=== PATIENT | male | born 1995 | race African-American/Black ===

== ENCOUNTER 2025-02-21 20:09 | Emergency (ER) | payer SELFPAY ==
[2025-02-21 20:13] VITALS: BP 123/83; PULSE 94; RESP 18; TEMP 37; O2SAT 96
--- NOTE | 2025-02-21 20:15 | DI.RAD_ITS ---
Exam(s) XR CHEST 2V PA LATERAL EXAM: XR CHEST 2V PA LATERAL CLINICAL HISTORY: cough. TECHNIQUE: 2D digital imaging was performed. COMPARISON: No exams were available for comparison FINDINGS: 2 views: Heart size is normal. The mediastinum is not widened. Lungs are clear. No infiltrates nor pleural effusions. IMPRESSION: No acute pulmonary findings. DATA REPOSITORY: RADIATION DOSE DELIVERED:
[2025-02-21 20:18] VITALS: BP 123/83; PULSE 94; RESP 18; TEMP 37; O2SAT 96
--- NOTE | 2025-02-21 20:27 | ED.GENADUL_ITS ---
Discharge Plan Disposition Patient Disposition: Home Condition: Stable Discharge Details Clinical Impression: Respiratory infection Primary Care Provider: Khalida,Local ED Provider: Palomo Alcala Home Meds and New Rx's Prescriptions: New prednisone 20 mg tablet 60 mg PO DAILY 4 Days Qty: 12 0RF doxycycline hyclate 100 mg tablet 100 mg PO BID Qty: 14 0RF Discharge Instructions Additional Instructions: You can use the inhaler 2 puffs every 4 hours as needed. If you are not improving within 1 week follow-up with either your primary care provider or express care. If you feel significantly more ill or short of breath return to the emergency department for evaluation HPI General Mode of arrival: ambulatory . Date/Time Provider Initiated Documentation: 02/21/25 20:15 . Limitations to Documentation: no limitations . Information obtained by: patient . History of Present Illness 29 year old M presents to the emergency department with the chief complaint of cough, body aches, dyspnea, described as moderate, Patient started experiencing this day(s) (1) and it has been constant. No relieving factors improve sympto m(s), No exacerbating factors reported . Patient notes no other symptoms.; denies fever/chills. Patient did receive the following treatments prior to arrival, none Related Data Home Medications ?Medication ?Instructions ?Recorded ?Confirmed doxycycline hyclate 100 mg tablet 100 mg PO BID #14 tabs 02/21/25 prednisone 20 mg tablet 60 mg (3 x 20 mg) PO DAILY 4 days 02/21/25 #12 tabs Previous Rx's ?Medication ?Instructions ?Recorded doxycycline hyclate 100 mg tablet 100 mg PO BID #14 tabs 02/21/25 prednisone 20 mg tablet 60 mg (3 x 20 mg) PO DAILY 4 days 02/21/25 #12 tabs Allergies Allergy/AdvReac Type Severity Reaction Status Date / Time No Known Allergies Allergy Verified 02/21/25 20:17 General Stated Complaint: RespSymp MERCEDES: 4 Review of Systems All systems reviewed & are unremarkable except as noted in HPI and below Constitutional Constitutional: Denies chills, Denies fever(s) and Denies weakness Cardiovascular Cardiovascular: Denies chest pain and Reports dyspnea Respiratory Respiratory: Reports cough and Reports dyspnea Gastrointestinal Gastrointestinal: Denies abdominal pain, Denies nausea and Denies vomiting Neurologic Neurologic: Denies weakness Exam Const General: no acute distress Orientation: alert HENMT Head: normal to inspection Ears: external ears normal General nose exam: external nose normal Mouth: moist mucous membranes Eyes General: appearance normal, both eyes and all related structures Neck Neck: normal visual inspection Resp Effort & Inspection: normal respiratory effort and able to speak in complete sentences Auscultation: rhonchi and wheezes Cardio Jugular venous pressure: no JVD Rate: regular rate Heart Sounds: no murmurs Skin General skin exam: no rashes or lesions noted Neuro General: patient alert and patient oriented x3 Extrem General: normal to inspection Psych Mental Status: mental status grossly normal Course Vital Signs Vital signs: Vital Signs Temperature 37.0 C 02/21/25 20:13 Pulse 94 H 02/21/25 20:13 Respiratory Rate 18 02/21/25 20:13 Blood Pressure 123/83 02/21/25 20:13 Pulse Oximetry 96 02/21/25 20:13 Temperature 37.0 C 02/21/25 20:18 Pulse 94 H 02/21/25 20:18 Respiratory Rate 18 02/21/25 20:18 Respiratory Effort Normal, Non-Labored 02/21/25 20:18 Respiratory Depth Normal 02/21/25 20:18 Blood Pressure 123/83 02/21/25 20:18 Blood Pressure Position Sitting 02/21/25 20:18 Pulse Oximetry 96 02/21/25 20:18 Oxygen Delivery Method Room Air 02/21/25 20:18 Oxygen Flow Rate 0 02/21/25 20:18 Pain Level 10 02/21/25 20:18 Medical Decision Making 29-year-old male who states he smokes marijuana and cigarettes daily comes in with chief complaint of 1 day of bodyaches, productive cough and difficulty breathing. He says that he used to have asthma when he was given he grew out of it. He denies any recent travel, fevers, vomiting. He is able to speak in full sentences in no distress. He has have rhonchi at the bases bilaterally and apical wheezing bilaterally. No JVD or leg swelling. I suspect respiratory infection and also reactive airway disease. Will treat with DuoNeb and prednisone and obtain a flu and COVID swab and chest x-ray to evaluate for possible pneumonia. Patient feels better after neb and prednisone. X-ray shows no acute findings, I am going to put him on doxycycline to cover for early pneumonia versus bronchitis. He is stable for discharge, advised to follow-up with either express care or PCP if not improving within a week and return precautions given Differential Diagnosis Differential Diagnosis: COVID, flu, pneumonia, reactive airway disease Quality:SDOH Health Related Social Needs: No Data to Display PFSH All Active Problems (Updated 02/21/25 @ 21:54 by Palomo Alcala MD) Respiratory infection (Acute) Social History Smoking/Tobacco Use Status: Current every day Smoking risk assessment performed?: Yes Alcohol Intake: current Alcohol Intake frequency: a few times a week Alcohol type: hard liquor Drug use: Daily Substance use type: marijuana Housing: house Do you feel safe at home: Yes Do you feel safe in your relationship?: Yes
[2025-02-21] MEDS: Albuterol/Ipratropium 3 ML UPD VIAL UPD (20:34)
[2025-02-21] MEDS: predniSONE 20 MG TAB 60 MG PO (20:34)
--- NOTE | 2025-02-21 21:41 | DI.VRAD_ITS ---
PROCEDURE INFORMATION: Exam: XR Chest Exam date and time: 02/21/2025 9:07 PM Age: 29 years old Clinical indication: Cough TECHNIQUE: Imaging protocol: Radiologic exam of the chest. Views: 2 views. COMPARISON: No relevant prior studies available. FINDINGS: Lungs: Unremarkable. No consolidation. Pleural spaces: Unremarkable. No pleural effusion. No pneumothorax. Heart/Mediastinum: Unremarkable. No cardiomegaly. Bones/joints: Unremarkable. IMPRESSION: No acute findings. Dictated and Authenticated by: Bernardino Green MD. Orderin Cari Culver MD
[2025-02-21] MEDS: Albuterol HFA 8 GM 60 PUFF INH IH (22:00)
[2025-02-21] MEDS: Doxycycline Hyclate 100 MG CAP PO (22:00)
[2025-02-21 22:03] VITALS: BP 126/78; PULSE 90; RESP 16; O2SAT 96
== END 2025-02-21 22:04 | disposition home or self-care (01) ==
PROVIDERS: Emergency Provider Emergency Medicine
DX: J06.9 Acute upper respiratory infection, unspecified (principal); F17.210 Nicotine dependence, cigarettes, uncomplicated; F12.90 Cannabis use, unspecified, uncomplicated
CPT/HCPCS: 99283; 99284; 94640; 87880; 71046; 87081; J7512; J7620